=== PATIENT | male | born 1975 | race Hispanic/Latino ===

== ENCOUNTER 2016-11-08 08:22 | Outpatient (CLI) | payer MEDICAID ==
[2016-11-08] MEDS ORDERED: NACL ONE (09:00)
[2016-11-08 09:28] LABS: Blood Urea Nitrogen 11 mg/dL (9-20)
--- NOTE | 2016-11-08 10:04 | Cat Scan Report ---
CTA CHEST: History: Thoracic aortic aneurysm. Technique: Helical CT following IV contrast. Pulmonary embolus protocol. Sagittal and coronal reformatted images. Rotational MIP images. Findings: Contrast bolus is satisfactory. No pulmonary embolus is identified. The aorta is adequately opacified. The ascending aorta measures 3.6 cm in maximum diameter on the coronal image 61. The aortic arch measures 2.9 cm. The descending thoracic aorta measures 2.6 cm. There is a 1.7 cm soft tissue density well-circumscribed mass in the lateral segment of the right lower lobe. The remainder of the lungs are clear. No significant interstitial or air space disease. No pleural effusion or pneumothorax. The thyroid gland, tracheobronchial tree, esophagus, heart, pericardium, mediastinal vessels, and bony thorax are unremarkable. Impression: The ascending aorta measures a maximum of 3.6 cm in diameter. Right lower lobe pulmonary nodule/mass as described. The etiology of this is unclear. This could represent a noncalcified granuloma. A neoplastic process cannot be excluded. Correlation with previous examinations would be helpful if they are available. Followup is recommended.
== END 2016-11-08 08:23 | disposition home or self-care (01) ==
LOC: CT 08:22
PROVIDERS: ATTEND Internal Medicine Cardiovascular Disease
DX: I71.2 Thoracic aortic aneurysm, without rupture (principal); R91.8 Other nonspecific abnormal finding of lung field
CPT/HCPCS: 36415; 71275; 82565; 84520; Q9967

== ENCOUNTER 2016-12-02 09:30 | Outpatient (CLI) | payer MEDICARE ==
--- NOTE | 2016-12-02 12:11 | PET Report ---
PET SB TO MT INITIAL: HISTORY: Solitary pulmonary nodule in right lung. TECHNIQUE: 15.2 millicuries F-18 FDG was administered intravenously. Noncontrast CT images and PET images were obtained from the skull base to the proximal thighs. Fused images were reviewed on a workstation. The patient's blood glucose level measured 91. COMPARISON: CT chest dated 11/08/16. FINDINGS: BRAIN: physiologic FDG uptake in the imaged brain. NECK: physiologic FDG uptake. MEDIASTINUM: physiologic FDG uptake. LUNGS: A 1.8 cm well-circumscribed nodules identified in the lateral right lower lobe. Max SUV measures 2.4. No additional pulmonary lesion. PLEURA/PERICARDIUM: physiologic FDG uptake. THORACIC LYMPH NODES: physiologic FDG uptake. HEPATOBILIARY: physiologic FDG uptake. Mean liver SUV measures 4.2. PANCREAS: physiologic FDG uptake. SPLEEN: physiologic FDG uptake. ADRENAL GLANDS: physiologic FDG uptake. KIDNEYS/RENAL COLLECTING SYSTEMS: physiologic FDG uptake. BOWEL/MESENTERY: physiologic FDG uptake. PELVIC VISCERA: physiologic FDG uptake. ABDOMINAL/PELVIC LYMPH NODES: physiologic FDG uptake. MUSCULOSKELETAL: physiologic FDG uptake. IMPRESSION: Negative PET/CT. The 1.8 cm right lower lobe nodule is hypometabolic with max SUV measuring 2.4. Consider followup CT in 6 months to ensure stability.
== END 2016-12-02 09:31 | disposition home or self-care (01) ==
LOC: PET 09:30
DX: R91.1 Solitary pulmonary nodule (principal); Z79.899 Other long term (current) drug therapy
CPT/HCPCS: 78815; 82962; A9552